=== PATIENT | female | born 1985 | race Caucasian/White ===

== ENCOUNTER 2018-12-27 16:13 | Inpatient (IN) | payer OTHER ==
[2018-12-27] MEDS ORDERED: SUBLIMAZE IV PRN (19:05)
[2018-12-27] MEDS ORDERED: BRETHINE SUB-Q PRN (19:05)
--- NOTE | 2018-12-27 19:15 | Ultrasound Report ---
PROCEDURE: US OB LIMITED TECHNIQUE: Limited OB ultrasound for ROXANA HISTORY: ROXANA COMPARISONS: None FINDINGS: LMP 06/06/2018 clinical Age : 29W 1 D LMP EDC 03/13/2019 Presentation: Cephalic Activity: Monitored Cardiac motion: 139 BPM using M-mode doppler Amniotic Fluid Volume: Adequate ROXANA: 7.6 cm (normal) IMPRESSION: Single viable at 29 weeks 1 days with ROXANA is 7.6 cm (normal). This document is electronically signed by Natacha Gerber MD., December 27 2018 07:14:02 PM ET
[2018-12-27] MEDS ORDERED: PITOCin/NS 20 UNIT/1000ML DRIP 20 UNITS/1,000 ML BAG IV SCH (20:00)
[2018-12-27] MEDS ORDERED: XYLOCAINE 2% INFILTRATI ONE (20:00)
[2018-12-27] MEDS ORDERED: LACTATED RINGERS 1,000 ML IV SCH (20:00)
--- NOTE | 2018-12-27 20:11 | History and Physical Report ---
History of Present Illness Date of examination: 12/27/18 Date of admission: 12/27/18 19:20 Chief complaint: Contractions History of present illness: 33 year old presents to L&D in labor. Patient states her contractions began late this afternoon. Patient reports active movement. Patient denies vaginal bleeding. Patient received care at [facility]. She brings records with her. LMP unknown, possibly 02/08/18. EDC 01/02/19. significant for the following: Elevated 1 hour sugar test (normal 3 hour OGTT), anemia (supplemented with iron). labs are as follows: A+, antibody screen negative, pap smear normal, rubella immune, RPR nonreactive, Hepatitis B surface antigen negative, HIV negative, chlamydia negative, gonorrhea negative, quad screen negative, 1 hour sugar test 144 (normal 3 hour OGTT), GBS negative. 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 denies: smoking, alcohol abuse, prescription drug abuse, IV drug use - Obstetrical History Expected Date of Delivery: 01/02/19 Actual Gestation: 39 Week(s) 1 Day(s) : 2 Para: 1 Hx # Term Pregnancies: 1 Number of Pregnancies: 0 Spontaneous Abortions: 0 Induced : 0 Number of Living Children: 1 Medications and Allergies Allergies Allergy/AdvReac Type Severity Reaction Status Date / Time No Known Allergies Allergy Verified 12/27/18 16:48 Active Meds: Active Medications Ephedrine Sulfate (Ephedrine Sulfate) 10 mg IV Q2M PRN PRN Reason: Hypotension Fentanyl (Sublimaze) 100 mcg IV Q2H PRN PRN Reason: Labor Pain Oxytocin/Sodium Chloride (Pitocin/Ns 20 Unit/1000ml Drip) 20 units in 1,000 mls @ 125 mls/hr IV DIRECT OLIVER Lactated Ringer's (Lactated Ringers) 1,000 mls @ 125 mls/hr IV DIRECT OLIVER Lidocaine (Xylocaine 2%) 20 ml INFILTRATI ONCE ONE Stop: 12/27/18 20:01 Terbutaline Sulfate (Brethine) 0.25 mg SUB-Q ONCE PRN PRN Reason: Hyperstimulation/Hypertonicity Review of Systems All systems: negative (contractions) - Vital Signs Vital signs: Vital Signs Pulse Pulse Ox 72 95 12/27/18 16:46 12/27/18 16:46 Temp Pulse Resp BP Pulse Ox 98 F 55 L 20 125/80 95 12/27/18 16:48 12/27/18 18:54 12/27/18 16:48 12/27/18 18:54 12/27/18 18:53 - Physical Exam Abdomen: Positive: normal appearance, soft. Negative: distention, tenderness, guarding, rigidity Genitourinary (Female): Positive: normal external genitalia, normal perenium. Negative: perineal/vulvar lesions Vagina: Positive: normal moisture, other (SSE performed: no pooling, negative nitrazine, negative fern) Uterus: Positive: enlarged (size=dates). Negative: tender Anus/Rectum: Positive: normal perianal skin Extremities: Positive: normal, edema (mild pedal edema bilaterally). Negative: tenderness - Obstetrical FHR: category 1 Uterine Contraction Monitor Mode: External Cervical Dilatation: 4.5 Cervical Effacement Percentage: 90 station: -1 Uterine Contraction Pattern: Regular Uterine Contraction Intensity: Mild Results All other labs normal. Assessment and Plan A: at 39 weeks, 1 day gestation. Labor. GBS negative. P: Admit. Continuous EFM. Anticipate vaginal .
[2018-12-27 21:07] LABS: Hematocrit 36.7 % (30.3-42.9); Hemoglobin 11.4 gm/dl (10.1-14.3); Mean Corpuscular HGB Conc 31 % (30-34); Mean Corpuscular Volume 87 fl (79-97); Platelet Count 219 K/mm3 (140-440); Red Blood Count 4.22 M/mm3 (3.65-5.03)
[2018-12-27 21:10] LABS: Red Cell Distribution Width 21.2 % (13.2-15.2)
[2018-12-28] MEDS ORDERED: MILK OF MAGNESIA PO PRN (02:05)
[2018-12-28] MEDS ORDERED: LANSINOH TP PRN (02:05)
[2018-12-28] MEDS ORDERED: TUCKS PAD TP PRN (02:05)
[2018-12-28] MEDS ORDERED: NORCO 5/325 PO PRN (02:05)
--- NOTE | 2018-12-28 02:24 | Procedure Note ---
OB Delivery Note - Delivery Date of Delivery: 12/28/18 Surgeon: LEXIE NAVARRO Estimated blood loss: 200cc - Vaginal Delivery presentation: vertex Delivery position: OA Intrapartum events: none Delivery induction: none Delivery monitor: external FHT, external uterine Route of delivery: Delivery placenta: spontaneous Delivery cord: 3 umbilical vessels, other (short cord) Delivery laceration: 1st degree Anesthesia: none Delivery comments: Spontaneous vaginal delivery at 01:47 of liveborn male weighing 8 lb. 6 oz. over 1st degree perineal laceration with apgars of 8/9. Baby placed immediately on mother's abdomen after . Short cord noted. Spontaneous cry and respirations. Baby dried and bulb suctioned. 3 vessel cord double clamped and cut after cessation of pulsation. Spontaneous delivery of intact placenta and membranes. EBL 200 cc. Pitocin to IV fluids after delivery of placenta. Fundus firm and midline. 1st degree perineal laceration repaired with vicryl in usual sterile fashion. Vaginal sweep negative. Sponge count correct. Mother and baby stable in birthing room.
[2018-12-28] MEDS ORDERED: SODIUM CHLORIDE FLUSH SYRINGE 10 ML IV PRN (03:00)
[2018-12-28] MEDS ORDERED: DERMOPLAST TP PRN (03:31)
[2018-12-28] MEDS: IBUPROFEN PO SCH ×4 (03:45→21:31)
[2018-12-28] MEDS: COLACE PO SCH ×2 (09:46→21:31)
[2018-12-28 16:52] LABS: Hematocrit 29.6 % (30.3-42.9); Hemoglobin 9.9 gm/dl (10.1-14.3)
[2018-12-28] MEDS: FEOSOL PO SCH (21:31)
[2018-12-29] MEDS: IBUPROFEN PO SCH ×2 (03:00→10:04)
--- NOTE | 2018-12-29 09:43 | Progress Note ---
Assessment and Plan A: day 1 S/P spontaneous vaginal delivery. Anemia secondary to and blood loss. P: Discharge patient home today when baby is able to go. discharge instructions and warning signs discussed with patient. Advised patient to avoid intercourse, lifting and heavy housework, driving and tub baths. Advised patient to continue taking her vitamins and iron supplements at home. Advised patient to follow up at [facility] in 6 weeks for exam (pt. to call the clinic for an appointment). Pt. voiced understanding of all instructions. Subjective - Subjective Date of service: 12/29/18 Principal diagnosis: day 1 S/P spontaneous vaginal delivery Interval history: day 1 S/P spontaneous vaginal delivery. Doing well. Patient desires discharge today. Patient reports small amount of lochia. She is voiding without difficulty, ambulating well, and tolerating a regular diet. Patient denies headache, chest pain, shortness of breath, cough, leg pain, abdominal pain, or heavy vaginal bleeding. Patient reports: appetite normal, voiding normally, pain well controlled, flatus, ambulating normally, no dizzy ambulation, no nauseated [place]: doing well Objective - Vital Signs Latest vital signs: Vital Signs Temp Pulse Resp BP BP Pulse Ox 12/29/18 08:26 98.0 F 71 18 105/52 97 12/29/18 00:53 98.1 F 70 18 102/61 97 12/28/18 16:42 98.1 F 76 20 108/68 96 12/28/18 12:43 98.0 F 66 20 105/50 98 Intake and Output 12/28/18 12/29/18 12/29/18 23:59 07:59 15:59 Intake Total 360 240 360 Output Total 600 Balance -240 240 360 Intake: Intake, Free Water 360 240 360 Output: Urine 600 Void 600 Other: Total, Output Amount 600 # Voids Void 2 1 - Exam Abdomen: Present: normal appearance, soft. Absent: distention, tenderness, guarding, rigidity Uterus: Present: normal, firm, fundal height below umbilicus. Absent: bogginess, tenderness Extremities: Present: normal. Absent: tenderness, edema - Labs Labs: Abnormal lab results 12/28/18 Range/Units 16:20 Hgb 9.9 L (10.1-14.3) gm/dl Hct 29.6 L D (30.3-42.9) %
--- NOTE | 2018-12-29 09:48 | Discharge Summary ---
Providers - Providers Date of Admission: 12/27/18 19:20 Date of discharge: 12/29/18 Attending physician: MELA KING MD None Primary care physician: MELA KING MD Hospitalization Reason for admission: active labor Delivery: Episiotomy: none Laceration: 1st degree Other procedures: none complications: none Discharge diagnosis: IUP at term delivered [place] baby: male Pertinent studies: Labs Hospital course: Normal hospital course. Condition at discharge: Good Disposition: DC-01 TO HOME OR SELFCARE - Discharge Diagnoses (1) Term delivered Status: Acute (2) Anemia due to blood loss Status: Acute Plan - Provider Discharge Summary Activity: routine, no sex for 6 weeks, no heavy lifting 4 weeks, no strenuous exercise Diet: routine Instructions: routine Additional instructions: Continue taking your vitamins and iron supplements at home. Take your vitamin every day. Take your iron supplement twice per day. Call your doctor immediately for: * Fever > 100.5 * Heavy vaginal bleeding ( >1 pad per hour) * Severe persistent headache * Shortness of breath * Reddened, hot, painful area to leg or breast - Follow up plan Follow up: MELA KING MD [Primary Care Provider] - 6 Weeks
[2018-12-29] MEDS: COLACE PO SCH (10:05)
[2018-12-29] MEDS: FEOSOL PO SCH (10:05)
[2018-12-29 13:12] VITALS: BP 118/75
== END 2018-12-29 14:00 | disposition home or self-care (01) | DRG 807 ==
LOC: TRG 16:13 → LD 19:20 → OB 12-28 03:26
PROVIDERS: ADMIT Obstetrics & Gynecology; ATTEND Obstetrics & Gynecology
PROC: 10E0XZZ Delivery of Products of Conception, External Approach (ICD-10-PCS; principal; 2018-12-28)
DX: O69.3XX0 Labor and delivery complicated by short cord, not applicable or unspecified (principal); Z37.0 Single live birth; O70.0 First degree perineal laceration during delivery; O99.02 Anemia complicating childbirth; D50.0 Iron deficiency anemia secondary to blood loss (chronic); Z83.3 Family history of diabetes mellitus; Z3A.39 39 weeks gestation of pregnancy
CPT/HCPCS: 36415; 59025; 76815; 85014; 85018; 85027; 86592; 86850; 86900; 86901; G0378; A6250; J2590; J7120